=== PATIENT | female | born 1985 | race Caucasian/White ===

== ENCOUNTER → 2017-01-03 | Outpatient (CLI) | payer OTHER | LOC: GIMAGING 12:20 → EDSTATUS 12:21 | PROVIDERS: ATTEND Registered Nurse | DX: M25.552 Pain in left hip (principal) | CPT/HCPCS: 73502-PO ==

== ENCOUNTER 2018-02-20 10:33 | Emergency (ER) | payer OTHER ==
[2018-02-20 10:39] VITALS: BP 113/67
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
== END 2018-02-20 12:30 | disposition home or self-care (01) ==
DX: S16.1XXA Strain of muscle, fascia and tendon at neck level, initial encounter (principal); F07.81 Postconcussional syndrome; G44.309 Post-traumatic headache, unspecified, not intractable; V49.40XA Driver injured in collision with unspecified motor vehicles in traffic accident, initial encounter; Y92.410 Unspecified street and highway as the place of occurrence of the external cause; Y99.8 Other external cause status; Y93.89 Activity, other specified